=== PATIENT | female | born 1985 | race Caucasian/White ===

== ENCOUNTER 2016-04-07 13:20 | Emergency (ER) | payer BC ==
[2016-04-07] MEDS ORDERED: SODIUM CHLORIDE 0.9% 1,000 ML IV STA ×2 (14:22)
[2016-04-07] MEDS ORDERED: HYDROmorphone 1 MG/ML 1 ML SYRINGE IVP STA (14:22)
[2016-04-07] MEDS ORDERED: ONDANSETRON 4 MG/2 ML VIAL IVP STA (14:22)
--- NOTE | 2016-04-07 14:24 | ED ---
General Adult HPI - General Chief complaint: Back Pain/Injury Stated complaint: Back Pain Time Seen by Provider: 04/07/16 14:19 Source: patient, RN notes reviewed Mode of arrival: wheelchair Limitations: no limitations - History of Present Illness Initial comments: Patient is a 30-year-old female who presents emergency room today with a chief complaint of right-sided flank pain that started this morning. She does admit that she started as a urinary tract infection. States she went to the family doctor was started on Cipro. She states that the pain is increased. She states radiated around to the right groin. She states it's more intense that she's been home. States never had pain like this in the past with any urinary tract infections. She does admit to a family history of kidney stones. She denies any complaints associated symptoms. She states she started one dose of Cipro and is also taking [id number] Azo for the symptoms. States that she 's felt nauseated is having episodes of vomiting. Patient denies any recent fever, chills, shortness of breath, chest pain, numbness or tingling, constipation or diarrhea, headaches or visual changes, or any other complaints. - Related Data Home Medications Medication Instructions Recorded Confirmed Ciprofloxacin HCl [Cipro] 500 mg PO Q12HR 04/07/16 04/07/16 Dextroamphetamine/Amphetamine 20 mg PO QAM 04/07/16 04/07/16 [Adderall Xr] Previous Rx's Medication Instructions Recorded Hydrocodone/Acetaminophen [[place] 1 each PO Q6HR PRN #20 tab 04/07/16 5-325] Ibuprofen [Motrin] 800 mg PO Q6HR PRN #30 tab 04/07/16 Ondansetron Odt [Zofran ODT] 4 mg PO Q8HR PRN #15 tab 04/07/16 Tamsulosin [Flomax] 0.4 mg PO DAILY #3 cap 04/07/16 Allergies Allergy/AdvReac Type Severity Reaction Status Date / Time Sulfa (Sulfonamide Allergy Rash/Hives Verified 04/07/16 14:40 Antibiotics) Review of Systems ROS Statement: Those systems with pertinent positive or pertinent negative responses have been documented in the HPI. ROS Other: All systems not noted in ROS Statement are negative. Past Medical History Past Medical History: No Reported History History of Any Multi-Drug Resistant Organisms: None Reported Past Surgical History: No Surgical Hx Reported Past Psychological History: ADD/ADHD Smoking Status: Never smoker Past Alcohol Use History: Occasional Past Drug Use History: None Reported General Exam - General Exam Comments Initial Comments: General: The patient is awake and alert, in no distress, and does not appear acutely ill. Eye: Pupils are equal, round and reactive to light, extra-ocular movements are intact. No nystagmus. There is normal conjunctiva bilaterally. No signs of icterus. Ears, nose, mouth and throat: There are moist mucous membranes and no oral lesions. Neck: The neck is supple, there is no tenderness or JVD. Cardiovascular: There is a regular rate and rhythm. No murmur, rub or gallop is appreciated. Respiratory: Lungs are clear to auscultation, respirations are non-labored, breath sounds are equal. No wheezes, stridor, rales, or rhonchi. Gastrointestinal: Soft, non-distended, non-tender abdomen without masses or organomegaly noted. There is no rebound or guarding present. No CVA tenderness. Bowel sounds are unremarkable. Musculoskeletal: Normal ROM, no tenderness. Strength 5/5. Sensation intact. Pulses equal bilaterally 2+. Neurological: A&O x 3. CN II-XII intact, There are no obvious motor or sensory deficits. Coordination appears grossly intact. Speech is normal. Skin: Skin is warm and dry and no rashes or lesions are noted. Psychiatric: Cooperative, appropriate mood & affect, normal judgment. Limitations: no limitations Course Vital Signs 04/07/16 15:00 Temperature 97.0 F L Pulse Rate 68 Respiratory 20 Rate Blood Pressure 108/65 O2 Sat by Pulse 100 Oximetry Medical Decision Making - Medical Decision Making Patient reexamined at this time shows no signs of distress is feeling much better after Toradol given here in emergency room. Her CAT scan reveals a 3 mm stone. No sign of obstruction. Results were discussed with the patient. Patient will be discharged home. She does have antibiotics at home of Cipro. She does have nitrates positive in her urine. Given dose of Rocephin here in the emergency room. No fever. Patient is stable. Will be discharged at this time with pain medication and nausea medication. Advised follow-up the family doctor and urologist. Advised return if symptoms increase or worsen or for any other concerns. Patient states understanding and is in agreement. - Lab Data Result diagrams: 04/07/16 15:00 04/07/16 15:00 Lab Results 04/07/16 04/07/16 04/07/16 Range/Units 15:00 15:00 15:00 WBC 13.0 H (3.8-10.6) k/uL RBC 4.43 (3.80-5.40) m/uL Hgb 13.5 (11.4-16.0) gm/dL Hct 37.9 (34.0-46.0) % MCV 85.5 (80.0-100.0) fL MCH 30.5 (25.0-35.0) pg MCHC 35.6 (31.0-37.0) g/dL RDW 13.5 (11.5-15.5) % Plt Count 361 (150-450) k/uL Neutrophils % 86 % Lymphocytes % 8 % Monocytes % 4 % Eosinophils % 0 % Basophils % 0 % Neutrophils # 11.2 H (1.3-7.7) k/uL Lymphocytes # 1.1 (1.0-4.8) k/uL Monocytes # 0.6 (0-1.0) k/uL Eosinophils # 0.1 (0-0.7) k/uL Basophils # 0.1 (0-0.2) k/uL Hyperchromasia Slight Sodium 140 (137-145) mmol/L Potassium 4.1 (3.5-5.1) mmol/L Chloride 100 (98-107) mmol/L Carbon Dioxide 27 (22-30) mmol/L Anion Gap 13 mmol/L BUN 17 (7-17) mg/dL Creatinine 0.80 (0.52-1.04) mg/dL Est GFR (MDRD) Af Amer >60 (>60 ml/min/1.73 sqM) Est GFR (MDRD) Non-Af >60 (>60 ml/min/1.73 sqM) Glucose 121 H (74-99) mg/dL Calcium 10.0 (8.4-10.2) mg/dL Total Bilirubin 0.7 (0.2-1.3) mg/dL AST 23 (14-36) U/L ALT 39 (9-52) U/L Alkaline Phosphatase 91 (38-126) U/L Total Protein 7.7 (6.3-8.2) g/dL Albumin 4.8 (3.5-5.0) g/dL Amylase 34 (30-110) U/L Lipase 37 (23-300) U/L Urine Color Urine Appearance (Clear) Urine pH (5.0-8.0) Ur Specific Woody (1.001-1.035) Urine Protein (Negative) Urine Glucose (UA) (Negative) Urine Ketones (Negative) Urine Blood (Negative) Urine Nitrate (Negative) Urine Bilirubin (Negative) Urine Urobilinogen (<2.0) mg/dL Ur Leukocyte Esterase (Negative) Urine RBC (0-5) /hpf Urine WBC (0-5) /hpf Ur Squamous Epith Cells (0-4) /hpf Urine Bacteria (None) /hpf Urine Mucus (None) /hpf Urine HCG, Qual Not Detected (Not Detectd) 04/07/16 Range/Units 15:00 WBC (3.8-10.6) k/uL RBC (3.80-5.40) m/uL Hgb (11.4-16.0) gm/dL Hct (34.0-46.0) % MCV (80.0-100.0) fL MCH (25.0-35.0) pg MCHC (31.0-37.0) g/dL RDW (11.5-15.5) % Plt Count (150-450) k/uL Neutrophils % % Lymphocytes % % Monocytes % % Eosinophils % % Basophils % % Neutrophils # (1.3-7.7) k/uL Lymphocytes # (1.0-4.8) k/uL Monocytes # (0-1.0) k/uL Eosinophils # (0-0.7) k/uL Basophils # (0-0.2) k/uL Hyperchromasia Sodium (137-145) mmol/L Potassium (3.5-5.1) mmol/L Chloride (98-107) mmol/L Carbon Dioxide (22-30) mmol/L Anion Gap mmol/L BUN (7-17) mg/dL Creatinine (0.52-1.04) mg/dL Est GFR (MDRD) Af Amer (>60 ml/min/1.73 sqM) Est GFR (MDRD) Non-Af (>60 ml/min/1.73 sqM) Glucose (74-99) mg/dL Calcium (8.4-10.2) mg/dL Total Bilirubin (0.2-1.3) mg/dL AST (14-36) U/L ALT (9-52) U/L Alkaline Phosphatase (38-126) U/L Total Protein (6.3-8.2) g/dL Albumin (3.5-5.0) g/dL Amylase (30-110) U/L Lipase (23-300) U/L Urine Color Dark Brown Urine Appearance Clear (Clear) Urine pH 8.0 (5.0-8.0) Ur Specific Woody 1.023 (1.001-1.035) Urine Protein 1+ H (Negative) Urine Glucose (UA) Negative (Negative) Urine Ketones Negative (Negative) Urine Blood Small H (Negative) Urine Nitrate Positive H (Negative) Urine Bilirubin 2+ H (Negative) Urine Urobilinogen 12.0 (<2.0) mg/dL Ur Leukocyte Esterase Negative (Negative) Urine RBC 69 H (0-5) /hpf Urine WBC 2 (0-5) /hpf Ur Squamous Epith Cells 3 (0-4) /hpf Urine Bacteria Occasional H (None) /hpf Urine Mucus Occasional H (None) /hpf Urine HCG, Qual (Not Detectd) Disposition Clinical Impression: Kidney stone Disposition: HOME SELF-CARE Condition: Good Instructions: Kidney Stones (ED) Additional Instructions: Please follow-up the family doctor/urologist over the next 2 days. Please use medications as prescribed. Please return to emergency room symptoms increase or worsen or for any other concerns. Prescriptions: Hydrocodone/Acetaminophen [[place] 5-325] 1 each PO Q6HR PRN #20 tab PRN Reason: Pain Ibuprofen [Motrin] 800 mg PO Q6HR PRN #30 tab PRN Reason: Pain Ondansetron Odt [Zofran ODT] 4 mg PO Q8HR PRN #15 tab PRN Reason: Nausea Tamsulosin [Flomax] 0.4 mg PO DAILY #3 cap Referrals: Chava Jackson MD [Primary Care Provider] - 1-2 days Ravindra Irwin MD [STAFF PHYSICIAN] - 1-2 days Time of Disposition: 17:16
[2016-04-07 15:15] LABS: Basophils # (A) 0.1 k/uL (0-0.2); Basophils % (A) 0 %; CHCM 37.7; Eosinophils # (A) 0.1 k/uL (0-0.7); Eosinophils % (A) 0 %; HCT 37.9 % (34.0-46.0); HDW 3.22; HGB 13.5 gm/dL (11.4-16.0); Hyperchromasia Slight; Luc # (Auto) 0.05; Luc % (Auto) 0; Lymphocytes # (A) 1.1 k/uL (1.0-4.8); Lymphocytes % (A) 8 %; MCH 30.5 pg (25.0-35.0); MCHC 35.6 g/dL (31.0-37.0); MCV 85.5 fL (80.0-100.0); Mean Platelet Volume 7.5; Monocytes # (A) 0.6 k/uL (0-1.0); Monocytes % (A) 4 %; Neutrophils # (A) 11.2 k/uL (1.3-7.7); Neutrophils % (A) 86 %; RBC 4.43 m/uL (3.80-5.40); RDW 13.5 % (11.5-15.5); WBC (Perox) 13.56
[2016-04-07 15:25] LABS: Appearance,Urine Clear (Clear); Bacteria,Urine Occasional /hpf; Bilirubin,Urine 2+ (Negative); Glucose,Urine (UA) Negative (Negative); Ketones,Urine Negative (Negative); Leukocyte Esterase,Urine Negative (Negative); Mucus,Urine Occasional /hpf; Nitrite,Urine Positive (Negative); Particle Count 9176; Protein,Urine 1+ (Negative); RBC,Urine 69 /hpf (0-5); Specific Gravity,Urine 1.023 (1.001-1.035); Squamous Epithelial Cell,Urine 3 /hpf (0-4); UA Billing (MACRO vs. MICRO) MICRO; WBC,Urine 2 /hpf (0-5)
[2016-04-07 15:26] LABS: ALT 39 U/L (9-52); AST 23 U/L (14-36); Alkaline Phosphatase 91 U/L (38-126); Amylase 34 U/L (30-110); Anion Gap 13 mmol/L; Blood Urea Nitrogen 17 mg/dL (7-17); Carbon Dioxide 27 mmol/L (22-30); Chloride 100 mmol/L (98-107); Glucose 121 mg/dL (74-99); Non-African American GFR(MDRD) >60 (>60 ml/min/1.73 sqM); Potassium 4.1 mmol/L (3.5-5.1); Sodium 140 mmol/L (137-145); Total Bilirubin 0.7 mg/dL (0.2-1.3); Total Protein 7.7 g/dL (6.3-8.2)
[2016-04-07] MEDS ORDERED: KETOROLAC 30 MG/ML 1 ML VIAL IVP STA (15:32)
--- NOTE | 2016-04-07 16:27 | XR ---
EXAMINATION TYPE: XR KUB DATE OF EXAM: 04/07/2016 4:19 PM COMPARISON: NONE INDICATION: Abdomen pain right flank pain TECHNIQUE: Single view abdomen upright FINDINGS: There is a normal bowel gas pattern. Psoas margins are normal. No organomegaly is present. No suspicious air-fluid levels or differential air-fluid levels are present. No free air is present. IMPRESSION: 1. Unremarkable Abdomen
--- NOTE | 2016-04-07 16:35 | CT ---
EXAMINATION TYPE: CT abdomen pelvis wo con DATE OF EXAM: 04/07/2016 4:18 PM COMPARISON: NONE INDICATION: Nausea, vomiting and generalized abdominal pain x 5 days. DLP: 1187 mGycm, Automated exposure control for dose reduction was used. CONTRAST: None Study performed without Oral Contrast TECHNIQUE: Axial images were obtained from above the diaphragm to the pubic rami in the axial plane a t 5 mm thick sections. Reconstructed images are reviewed on the computer in the coronal plane. FINDINGS: Limited CT sections are obtained the lung bases. The lung bases are clear. CT ABDOMEN: Liver: Normal Spleen: Normal Pancreas: Normal Adrenal glands: The adrenal glands are normal. Gallbladder: Normal Kidneys: No masses are evident. No hydronephrosis is present. No cysts are present. Aorta: Normal Inferior vena cava: Normal. CT PELVIS: Small amount of free fluid is within the cul-de-sac. Loops of bowel within the abdomen and pelvis are normal. Appendix: Normal as visualized. Urinary bladder: Normal. Genitourinary structures: Uterus is normal. Adnexal regions are clear. There is a 0.3 cm calcification in the distal left ureter at the ureterovesical junction. No hydronep hrosis or hydroureter is evident. Osseous structures: No suspicious lytic or sclerotic lesions. IMPRESSIONS: 1. 0.3 cm distal left ureteral vesicle junction stone. 2. Minimal free fluid within the cul-de-sac.
[2016-04-07 17:45] VITALS: BP 120/67; PULSE 80; RESP 16; TEMP 97.7
== END 2016-04-07 17:45 | disposition home or self-care (01) ==
LOC: EC 13:20
DX: N20.2 Calculus of kidney with calculus of ureter (principal); F90.9 Attention-deficit hyperactivity disorder, unspecified type; Z87.440 Personal history of urinary (tract) infections; Z79.899 Other long term (current) drug therapy; Z88.2 Allergy status to sulfonamides
CPT/HCPCS: 99284; 96365; 96375; 96361; 36415; 80053; 82150; 83690; 85025; 81001; 81025; 87086; 74000; 74176; J2405; J0696; J1885; J1170

== ENCOUNTER → 2016-05-25 | Outpatient (CLI) | payer BC ==
--- NOTE | 2016-05-25 11:25 | XR ---
EXAMINATION TYPE: XR chest 2V DATE OF EXAM: 05/25/2016 10:50 AM COMPARISON: Prior chest x-ray 31 October 2010 HISTORY: Pleuritic chest pain TECHNIQUE: Frontal and lateral views of the chest are obtained. FINDINGS: There is no focal air space opacity, pleural effusion, or pneumothorax seen. The cardiac silhouette size is within normal limits. May be a slight spinal curvature. The osseous structures ar e intact. IMPRESSION: No acute cardiopulmonary process.
== END ==
LOC: RADXRMAIN 10:34
PROVIDERS: ATTEND Pediatrics
DX: R07.89 Other chest pain (principal)
CPT/HCPCS: 71020

== ENCOUNTER 2016-05-30 20:00 | Emergency (ER) | payer BC ==
[2016-05-30 20:07] VITALS: BP 145/87; PULSE 109; RESP 20; TEMP 100.4
[2016-05-30] MEDS ORDERED: ACETAMINOPHEN TAB 325 MG TAB PO STA (20:22)
--- NOTE | 2016-05-30 20:25 | ED ---
URI HPI - General Chief Complaint: Upper Respiratory Infection Stated Complaint: KATY Time Seen by Provider: 05/30/16 20:11 Source: patient, RN notes reviewed Mode of arrival: ambulatory Limitations: no limitations - History of Present Illness Initial Comments: Patient is a 30-year-old female who presents to the emergency room for evaluation of upper respiratory symptoms. Patient states she's had a dry cough for the past 3 days. Patient states she has been taking [id number] Robitussin with no relief of symptoms. Patient denies smoking. Patient does state she has a history of asthma. Patient states been using her inhaler with no relief of symptoms. Patient also states over the past 24 hours she began developing a fever. Patient states she has been taking ibuprofen with little relief of symptoms. Patient states her last dose ibuprofen was around 6:30 PM. Patient states she is having all over body aches. Patient denies throat pain or ear pain. Patient denies abdominal pain. Patient states she is feeling nauseous but denies vomiting. Patient denies diarrhea or constipation. Patient states that she did not receive her influenza vaccine this year. - Related Data Home Medications Medication Instructions Recorded Confirmed Dextroamphetamine/Amphetamine 20 mg PO QAM 04/07/16 05/30/16 [Adderall Xr] Albuterol Inhaler [Ventolin Hfa 1 - 2 puff INHALATION RT-QID PRN 05/30/16 Inhaler] Ibuprofen [Motrin] 800 mg PO TID PRN 05/30/16 05/30/16 Previous Rx's Medication Instructions Recorded Oseltamivir [Tamiflu] 75 mg PO Q12HR 5 Days 05/30/16 Allergies Allergy/AdvReac Type Severity Reaction Status Date / Time Sulfa (Sulfonamide Allergy Rash/Hives Verified 05/30/16 20:21 Antibiotics) Review of Systems ROS Statement: Those systems with pertinent positive or pertinent negative responses have been documented in the HPI. ROS Other: All systems not noted in ROS Statement are negative. Past Medical History Past Medical History: Asthma History of Any Multi-Drug Resistant Organisms: None Reported Past Surgical History: No Surgical Hx Reported Past Psychological History: ADD/ADHD Smoking Status: Never smoker Past Alcohol Use History: Occasional Past Drug Use History: None Reported General Exam - General Exam Comments Initial Comments: Sitting in exam room, no acute distress. Limitations: no limitations General appearance: alert, in no apparent distress Head exam: Present: atraumatic, normocephalic, normal inspection Eye exam: Present: normal appearance ENT exam: Present: normal exam, normal oropharynx, mucous membranes moist, TM's normal bilaterally, normal external ear exam Neck exam: Present: normal inspection Respiratory exam: Present: normal lung sounds bilaterally. Absent: respiratory distress Cardiovascular Exam: Present: normal rhythm, tachycardia, normal heart sounds Extremities exam: Present: normal inspection Back exam: Present: normal inspection Neurological exam: Present: alert, oriented X3, CN II-XII intact, normal gait Psychiatric exam: Present: normal affect, normal mood Skin exam: Present: warm, dry, intact, normal color. Absent: rash Course Vital Signs 05/30/16 20:05 Temperature 100.4 F H Pulse Rate 109 H Respiratory 20 Rate Blood Pressure 145/87 O2 Sat by Pulse 98 Oximetry Medical Decision Making - Medical Decision Making Patient is a 30-year-old female presents to the emergency room for evaluation of cough, congestion and fever. Chest x-ray shows no acute findings. Influenza B positive. Patient be started on Tamiflu. Advised to alternate Tylenol and Motrin. Patient states she understands everything that was discussed with her. Return parameters discussed. Case discussed with Dr. De La Rosa. - Lab Data Lab Results 05/30/16 Range/Units 20:20 Influenza Type A RNA Not Detected (Not Detectd) Influenza Type B (PCR) Detected H (Not Detectd) - Radiology Data Radiology results: report reviewed, image reviewed Disposition Clinical Impression: Influenza B Disposition: HOME SELF-CARE Condition: Good Instructions: Influenza (ED) Additional Instructions: Take Tamiflu as directed. Alternate Tylenol and Motrin every 3 hours for fever. Drink plenty fluids. Please follow up with primary care provider in 1- 2 days. If any new symptom arises or symptoms worsen, return to ER as soon as possible. Prescriptions: Oseltamivir [Tamiflu] 75 mg PO Q12HR 5 Days Referrals: Chava Jackson MD [Primary Care Provider] - 1-2 days Time of Disposition: 21:04
--- NOTE | 2016-05-30 20:42 | XR ---
EXAMINATION TYPE: XR chest 2V DATE OF EXAM: 05/30/2016 8:31 PM COMPARISON: 05/25/2016 HISTORY: Fever and cough TECHNIQUE: Frontal and lateral views of the chest are obtained. FINDINGS: Heart and mediastinum are normal. Lungs are clear. Diaphragm is normal. Bony thorax and so ft tissues appear normal. IMPRESSION: Normal chest. No change.
== END 2016-05-30 21:15 | disposition home or self-care (01) ==
LOC: EC 20:00
DX: J10.1 Influenza due to other identified influenza virus with other respiratory manifestations (principal); J45.909 Unspecified asthma, uncomplicated; F90.9 Attention-deficit hyperactivity disorder, unspecified type; Z79.899 Other long term (current) drug therapy; Z88.2 Allergy status to sulfonamides
CPT/HCPCS: 71020; 87502; 99283

== ENCOUNTER → 2017-09-12 | Outpatient (CLI) | payer BC ==
--- NOTE | 2017-09-12 20:08 | US ---
EXAMINATION TYPE: US renals and bladder DATE OF EXAM: 09/12/2017 COMPARISON: NONE CLINICAL HISTORY: Hematuria R31.9. Gross hematuria x 5 months. Proteinuria, right flank pain, history of kidney stones EXAM MEASUREMENTS: Right Kidney: 11.8 x 4.7 x 6.3 cm Left Kidney: 12.0 x 6.1 x 5.1 cm Right Kidney: no evidence of hydronephrosis Left Kidney: no evidence of hydronephrosis Bladder: not fully distended, appears wnl Bilateral Jets seen: no IMPRESSION: No evidence of renal mass or obstruction. Urinary bladder appears normal.
== END | disposition home or self-care (01) ==
LOC: RADUSMAIN 17:52
PROVIDERS: ATTEND Pediatrics
DX: R31.9 Hematuria, unspecified (principal)
CPT/HCPCS: 76770

== ENCOUNTER 2021-12-15 07:39 | Emergency (ER) | payer BC ==
[2021-12-15 07:45] VITALS: BP 150/86; PULSE 82; RESP 18; TEMP 97.8
--- NOTE | 2021-12-15 08:41 | ED ---
Chest Pain HPI - General Chief Complaint: Chest Pain Stated Complaint: chest pain Time Seen by Provider: 12/15/21 08:06 Source: patient Mode of arrival: ambulatory Limitations: no limitations - History of Present Illness Initial Comments: 35-year-old female with past medical history of exercise-induced asthma who presents to emergency room with chest pain. States that for the past 3 days she has had left-sided substernal chest pain which radiates into her back. Pain is worse with exertion and better with rest. She has associated shortness of matias th. Denies previous history of cardiac disease. Asthma as mild, intermittent. Only uses her inhaler twice per year. Denies any palliative factors. No fevers, chills or cough. No ripping or tearing sensation to her back. Denies any numbness, tingling or weakness to extremities. No headaches or visual changes. Denies any calf pain or swelling. No history of DVT or PE. She had telehealth visit this morning. When her primary care provider heard she was having chest pain, she recommended that she go to the emergency room for evaluation. Patient also reports to dysuria. He saw a urologist last week and was diagnosed with urinary tract infection. She was placed on Macrobid for which she is taking however her symptoms are not improved. Patient is status post hysterectomy. No other alleviating, precipitating or modifying factors - Related Data Home Medications Medication Instructions Recorded Confirmed Dextroamphetamine/Amphetamine 20 mg PO QAM 04/07/16 05/30/16 [Adderall Xr] Albuterol Inhaler [Ventolin Hfa 1 - 2 puff INHALATION RT-QID PRN 05/30/16 05/30/16 Inhaler] Ibuprofen [Motrin] 800 mg PO TID PRN 05/30/16 05/30/16 Previous Rx's Medication Instructions Recorded Oseltamivir [Tamiflu] 75 mg PO Q12HR 5 Days cap 05/30/16 Cephalexin [Keflex] 500 mg PO BID 1 Days #14 cap 12/15/21 Allergies Allergy/AdvReac Type Severity Reaction Status Date / Time Sulfa (Sulfonamide Allergy Rash/Hives Verified 12/15/21 07:45 Antibiotics) Review of Systems ROS Statement: Those systems with pertinent positive or pertinent negative responses have been documented in the HPI. ROS Other: All systems not noted in ROS Statement are negative. EKG Findings - EKG Comments: EKG Findings:: EKG demonstrates sinus rhythm with a rate of 72. IN interval 132. QRS 87. QTC 398. No acute ST segment elevations or depressions Past Medical History Past Medical History: Asthma History of Any Multi-Drug Resistant Organisms: None Reported Past Surgical History: No Surgical Hx Reported Past Psychological History: ADD/ADHD Smoking Status: Never smoker Past Alcohol Use History: Occasional Past Drug Use History: None Reported General Exam Limitations: no limitations General appearance: alert, in no apparent distress Head exam: Present: atraumatic, normocephalic, normal inspection Eye exam: Present: normal appearance, PERRL, EOMI. Absent: scleral icterus, conjunctival injection, periorbital swelling ENT exam: Present: normal exam, mucous membranes moist Neck exam: Present: normal inspection. Absent: tenderness, meningismus, lymphadenopathy Respiratory exam: Present: normal lung sounds bilaterally. Absent: respiratory distress, wheezes, rales, rhonchi, stridor Cardiovascular Exam: Present: regular rate, normal rhythm, normal heart sounds. Absent: systolic murmur, diastolic murmur, rubs, gallop, clicks GI/Abdominal exam: Present: soft, normal bowel sounds. Absent: distended, tenderness, guarding, rebound, rigid Extremities exam: Present: normal inspection, full ROM, normal capillary refill. Absent: tenderness, pedal edema, joint swelling, calf tenderness Back exam: Present: normal inspection Neurological exam: Present: alert, oriented X3, CN II-XII intact Psychiatric exam: Present: normal affect, normal mood Skin exam: Present: warm, dry, intact, normal color. Absent: rash Course Vital Signs 12/15/21 07:42 Temperature 97.8 F Pulse Rate 82 Respiratory 18 Rate Blood Pressure 150/86 O2 Sat by Pulse 100 Oximetry Chest Pain MDM - MDM Upon arrival the patient is placed into room 8. Thorough history and physical exam was performed. IV access was established. Patient was offered something for pain control however refused. Laboratory studies were conducted reviewed. D-dimer negative. Troponin negative. Chest x-rays performed which showed trace no acute process. Results are discussed with the patient. Urinalysis continues to demonstrate blood and bacteria. Her anabiotic will be changed at this time. He urine specimen will be sent for culture. Instructed to start taking the medications as directed and she will be called if culture results demonstrate that the Keflex will not work. She is to follow-up with her primary care doctor to ensure that the infection has cleared. She also needs to follow-up and have an echo performed. Return for any new or worsening symptoms. Patient was agreeable and discharged home in stable condition Disposition Clinical Impression: Chest pain Disposition: HOME SELF-CARE Condition: Stable Instructions (If sedation given, give patient instructions): Chest Pain (ED), Urinary Tract Infection in Women (ED) Additional Instructions: Please take the medications as directed. If you continue to have symptoms after the medications are finished, you will have to see the urologist again. Please follow-up with primary care doctor for your chest pain. You should have an echo completed. Return for any new or worsening symptoms Prescriptions: Cephalexin [Keflex] 500 mg PO BID 1 Days #14 cap Is patient prescribed a controlled substance at d/c from ED?: No Referrals: Chava Jackson MD [Primary Care Provider] - 1-2 days Time of Disposition: 10:31
[2021-12-15 09:17] LABS: Basophils # (A) 0.1 k/uL (0-0.2); Basophils % (A) 1 %; Eosinophils # (A) 0.4 k/uL (0-0.7); Eosinophils % (A) 5 %; HCT 40.3 % (34.0-46.0); HGB 14.3 gm/dL (11.4-16.0); Lymphocytes # (A) 1.7 k/uL (1.0-4.8); Lymphocytes % (A) 23 %; MCH 30.6 pg (25.0-35.0); MCHC 35.4 g/dL (31.0-37.0); MCV 86.4 fL (80.0-100.0); Mean Platelet Volume 7.4; Monocytes # (A) 0.4 k/uL (0-1.0); Monocytes % (A) 5 %; Neutrophils # (A) 4.8 k/uL (1.3-7.7); Neutrophils % (A) 64 %; Platelet Count 305 k/uL (150-450); RBC 4.66 m/uL (3.80-5.40); RDW 13.1 % (11.5-15.5); WBC 7.4 k/uL (3.8-10.6)
[2021-12-15 09:24] LABS: ALT 23 U/L (4-34); AST 24 U/L (14-36); African American GFR (CKD) >90 (>60 ml/min/1.73 sqM); Albumin 4.7 g/dL (3.5-5.0); Alkaline Phosphatase 109 U/L (38-126); Anion Gap 13 mmol/L; Blood Urea Nitrogen 14 mg/dL (7-17); Calcium 9.5 mg/dL (8.4-10.2); Carbon Dioxide 24 mmol/L (22-30); Chloride 101 mmol/L (98-107); Glucose 93 mg/dL (74-99); Lipase 35 U/L (23-300); Magnesium 1.8 mg/dL (1.6-2.3); Non-African American GFR(CKD) >90 (>60 ml/min/1.73 sqM); Potassium 4.2 mmol/L (3.5-5.1); Sodium 138 mmol/L (137-145); Total Bilirubin 1.2 mg/dL (0.2-1.3); Total Protein 7.4 g/dL (6.3-8.2)
[2021-12-15 09:37] LABS: INR 0.9 (<1.2); Partial Thromboplastin Time 23.6 sec (22.0-30.0); Prothrombin Time 10.4 sec (9.0-12.0)
[2021-12-15 10:06] LABS: Appearance,Urine Cloudy (Clear); Bacteria,Urine Rare /hpf; Bilirubin,Urine Negative (Negative); Blood,Urine Moderate (Negative); Color,Urine Yellow; Glucose,Urine (UA) Negative (Negative); Ketones,Urine Negative (Negative); Leukocyte Esterase,Urine Negative (Negative); Mucus,Urine Many /hpf; Nitrite,Urine Negative (Negative); PH, Urine 6.5 (5.0-8.0); Protein,Urine Trace (Negative); RBC,Urine 23 /hpf (0-5); Specific Gravity,Urine 1.019 (1.001-1.035); Squamous Epithelial Cell,Urine 1 /hpf (0-4); Urobilinogen,Urine <2.0 mg/dL (<2.0); WBC,Urine 2 /hpf (0-5)
--- NOTE | 2021-12-15 10:14 | XR ---
EXAMINATION TYPE: XR chest 2V DATE OF EXAM: 12/15/2021 10:09 AM COMPARISON: Chest radiographs from 05/30/2016 TECHNIQUE: XR chest 2V Frontal and lateral views of the chest. CLINICAL INDICATION:Female, 35 years old with history of Cough/pain; FINDINGS: Lungs/Pleura: There is no evidence of pleural effusion, focal consolidation, or pneumothorax. Pulmonary vascularity: Unremarkable. Heart/mediastinum: Cardiomediastinal silhouette is unremarkable. Musculoskeletal: No acute osseous pathology. IMPRESSION: No acute cardiopulmonary disease/process.
== END 2021-12-15 10:47 | disposition home or self-care (01) ==
LOC: EC 07:39
DX: R07.9 Chest pain, unspecified (principal); R07.89 Other chest pain; J45.909 Unspecified asthma, uncomplicated; Z88.2 Allergy status to sulfonamides; Z79.51 Long term (current) use of inhaled steroids; Z79.899 Other long term (current) drug therapy; Z20.822 Contact with and (suspected) exposure to COVID-19
CPT/HCPCS: 36415; 71046; 80053; 81001; 83690; 83735; 84484; 85025; 85379; 85610; 85730; 87635; 93005; 99285

== ENCOUNTER → 2022-03-09 | Outpatient (CLI) | payer BC ==
[2022-03-09 15:07] LABS: Chol/HDL Ratio 4.62 Ratio; LDL Cholesterol,Calculated 111.6 mg/dL (0.0-131.0)
== END | disposition home or self-care (01) ==
LOC: LABWHC1 08:45
PROVIDERS: ATTEND Internal Medicine
DX: I10 Essential (primary) hypertension (principal); E78.5 Hyperlipidemia, unspecified
CPT/HCPCS: 36415; 80061

== ENCOUNTER 2023-08-10 08:59 | Observation (INO) | payer BC ==
[2023-08-10] MEDS: methylPREDNISolone SOD SUCCI 125 MG/2 ML VIAL IV STA (09:33)
[2023-08-10] MEDS: MAGNESIUM SULFATE-D5W PMX 1 GM in DEXTROSE/WATER 1 100ML.BAG IVPB ONE (09:34)
[2023-08-10 10:06] LABS: Basophils # (A) 0.1 k/uL (0-0.2); Basophils % (A) 1 %; Eosinophils # (A) 0.1 k/uL (0-0.7); Eosinophils % (A) 1 %; HCT 40.5 % (34.0-46.0); Hyperchromasia Slight; Lymphocytes # (A) 0.8 k/uL (1.0-4.8); Lymphocytes % (A) 7 %; MCHC 34.7 g/dL (31.0-37.0); MCV 86.7 fL (80.0-100.0); Mean Platelet Volume 7.7; Monocytes # (A) 0.3 k/uL (0-1.0); Monocytes % (A) 3 %; Neutrophils # (A) 10.9 k/uL (1.3-7.7); Neutrophils % (A) 89 %; Platelet Count 344 k/uL (150-450); RBC 4.67 m/uL (3.80-5.40); RDW 12.8 % (11.5-15.5); WBC 12.3 k/uL (3.8-10.6)
--- NOTE | 2023-08-10 10:10 | XR ---
EXAMINATION TYPE: XR chest 2V DATE OF EXAM: 08/10/2023 COMPARISON: 12/15/2021 HISTORY: 37-year-old female with shortness of breath TECHNIQUE: PA and lateral views FINDINGS: The cardiomediastinal silhouette, aorta, and pulmonary vasculature are within normal limits. Lungs an d pleural spaces are clear. IMPRESSION: No acute cardiopulmonary process.
[2023-08-10 10:13] LABS: ALT 27 U/L (4-34); African American GFR (CKD) >90 (>60 ml/min/1.73 sqM); Albumin 4.7 g/dL (3.5-5.0); Anion Gap 7 mmol/L; Blood Urea Nitrogen 21 mg/dL (7-17); Calcium 9.6 mg/dL (8.4-10.2); Carbon Dioxide 29 mmol/L (22-30); Chloride 103 mmol/L (98-107); Glucose 115 mg/dL (74-99); Non-African American GFR(CKD) >90 (>60 ml/min/1.73 sqM); Sodium 139 mmol/L (137-145); Total Bilirubin 1.5 mg/dL (0.2-1.3)
[2023-08-10] MEDS: IPRATROPIUM-ALBUTEROL 3 ML NEB INHALATION STA (10:17)
[2023-08-10 10:24] LABS: AST 30 U/L (14-36); Potassium 3.9 mmol/L (3.5-5.1)
[2023-08-10 10:25] LABS: Alkaline Phosphatase 87 U/L (38-126)
[2023-08-10] MEDS: ALBUTEROL NEBULIZED 2.5 MG/3 ML INHALATION STA (11:58)
[2023-08-10] MEDS ORDERED: NALOXONE 0.4 MG/ML 1 ML VIAL IV PRN (12:57)
[2023-08-10] MEDS ORDERED: ONDANSETRON 4 MG/2 ML VIAL IVP PRN (12:57)
[2023-08-10] MEDS ORDERED: IPRATROPIUM-ALBUTEROL 3 ML NEB INHALATION PRN (13:00)
--- NOTE | 2023-08-10 13:00 | ED ---
General Adult HPI - General Chief complaint: Shortness of Breath Stated complaint: KATY Time Seen by Provider: 08/10/23 09:02 Source: patient, RN notes reviewed Mode of arrival: ambulatory Limitations: no limitations - History of Present Illness Initial comments: 87-year-old female presents emergency department complaint of shortness of breath. Patient states she started not feeling well over the weekend and saw PCP on Tuesday as she has chronic lung issues was placed on antibiotics and steroids and breathing treatments. She states that she had no improvement she has worsened she has dyspnea at rest and with movement. She states that she is not told because she has chronic bronchitis issues she may have COPD she states she was a smoker for 1 year at 20 years old. Patient denies any reported fevers no night sweats she states her lungs are tight. Denies any GI symptoms. - Related Data Home Medications Medication Instructions Recorded Confirmed Azithromycin [Zithromax Z Pack] See Taper PO DIRECTED 08/10/23 08/10/23 levalbuterol HCL [Xopenex 0.63 mg INHALATION RT-QID 08/10/23 08/10/23 Nebulized] predniSONE [Deltasone] 40 mg PO DAILY 08/10/23 08/10/23 Allergies Allergy/AdvReac Type Severity Reaction Status Date / Time Sulfa (Sulfonamide Allergy Rash/Hives Verified 08/10/23 10:33 Antibiotics) Review of Systems ROS Statement: Those systems with pertinent positive or pertinent negative responses have been documented in the HPI. ROS Other: All systems not noted in ROS Statement are negative. Past Medical History Past Medical History: Asthma, COPD History of Any Multi-Drug Resistant Organisms: None Reported Past Surgical History: Hysterectomy Past Psychological History: ADD/ADHD Smoking Status: Never smoker Past Alcohol Use History: Occasional Past Drug Use History: None Reported General Exam Limitations: no limitations General appearance: alert, in no apparent distress Head exam: Present: atraumatic, normocephalic, normal inspection Eye exam: Present: normal appearance, PERRL, EOMI. Absent: scleral icterus, conjunctival injection, periorbital swelling ENT exam: Present: normal exam, normal oropharynx, mucous membranes moist Neck exam: Present: normal inspection, full ROM. Absent: tenderness, meningismus, lymphadenopathy Respiratory exam: Present: respiratory distress, wheezes. Absent: normal lung sounds bilaterally, rales, rhonchi, stridor Cardiovascular Exam: Present: regular rate, normal rhythm, normal heart sounds. Absent: systolic murmur, diastolic murmur, rubs, gallop, clicks Course Vital Signs 08/10/23 08/10/23 08/10/23 09:03 10:17 10:33 Temperature 98.5 F Pulse Rate 92 80 83 Respiratory 16 Rate Blood Pressure 128/88 O2 Sat by Pulse 97 Oximetry 08/10/23 08/10/23 08/10/23 11:06 11:44 11:58 Temperature Pulse Rate 87 75 Respiratory 18 Rate Blood Pressure 129/71 O2 Sat by Pulse 95 92 L Oximetry 08/10/23 12:18 Temperature Pulse Rate 91 Respiratory Rate Blood Pressure O2 Sat by Pulse Oximetry Medical Decision Making - Medical Decision Making Was pt. sent in by a medical professional or institution (Dr. PA, [facility], urgent care, hospital, or group home...) When possible be specific @ -No Did you speak to anyone other than the patient for history (EMS, parent, family, police, friend...)? What history was obtained from this source @ -No Did you review nursing and triage notes (agree or disagree)? Why? @ -I reviewed and agree with nursing and triage notes Were old charts reviewed (outside hosp., previous admission, EMS record, old EKG, old radiological studies, urgent care reports/EKG's, group home records)? Report findings @ -No old charts were reviewed Differential Diagnosis (chest pain, altered mental status, abdominal pain women, abdominal pain men, vaginal bleeding, weakness, fever, dyspnea, syncope, headache, dizziness, GI bleed, back pain, seizure, CVA, palpatations, mental health, musculoskeletal)? @ -Differential Dyspnea: Coronary syndrome, arrhythmia, tamponade, asthma, COPD, pulmonary embolism, pneumonia, pneumothorax, pulmonary effusion, anaphylaxis, diabetic ketoacidosis, flailed chest, pulmonary contusion, diaphragmatic rupture, anemia, neuromuscular, this is not meant to be an all-inclusive list. EKG interpreted by me (3pts min.). @ -None X-rays interpreted by me (1pt min.). @ -Chest x-ray shows no evidence of pneumonia CT interpreted by me (1pt min.). @ -None done U/S interpreted by me (1pt. min.). @ -None done What testing was considered but not performed or refused? (CT, X-rays, U/S, labs)? Why? @ -None What meds were considered but not given or refused? Why? @ -None Did you discuss the management of the patient with other professionals (professionals i.e. , PA, [facility], lab, RT, psych nurse, social work assistant, pipe wrapping machine operator, teacher, vice squad police officer, case finishing machine adjuster)? Give summary @ -Dr. Sweet for asthma exacerbation failed outpatient treatment Was smoking cessation discussed for >3mins.? @ -No Was critical care preformed (if so, how long)? @ -No Were there social determinants of health that impacted care today? How? (Homelessness, low income, unemployed, alcoholism, drug addiction, transportation, low edu. Level, literacy, decrease access to med. care, fdc, rehab)? @ -No Was there de-escalation of care discussed even if they declined (Discuss DNR or withdrawal of care, Hospice)? DNR status @ -No What co-morbidities impacted this encounter? (DM, HTN, Smoking, COPD, CAD, Cancer, CVA, ARF, Chemo, Hep., AIDS, mental health diagnosis, sleep apnea, morbid obesity)? @ -Asthma Was patient admitted / discharged? Hospital course, mention meds given and route, prescriptions, significant lab abnormalities, going to OR and other pertinent info. @ -Admitted patient does have noted hypoxia 90% with ambulation patient has diffuse wheezing minimal improvement patient has acute asthma exacerbation is failed outpatient treatment with steroids and antibiotics patient does not have current signs of bacterial infection will be started on Pulmicort inhaled, DuoNeb treatments, Solu-Medrol Undiagnosed new problem with uncertain prognosis? @ -No Drug Therapy requiring intensive monitoring for toxicity (Heparin, Nitro, Insulin, Cardizem)? @ -No Were any procedures done? @ -No Diagnosis/symptom? @ -Acute exacerbation failed outpatient treatment Acute, or Chronic, or Acute on Chronic? @ -Acute Uncomplicated (without systemic symptoms) or Complicated (systemic symptoms)? @ -Complicated Side effects of treatment? @ -No Exacerbation, Progression, or Severe Exacerbation? @ -Exacerbation Poses a threat to life or bodily function? How? (Chest pain, USA, MT, pneumonia, PE, COPD, DKA, ARF, appy, cholecystitis, CVA, Diverticulitis, Homicidal, Suicidal, threat to staff... and all critical care pts) @ -Yes asthma exacerbation could cause respiratory failure - Lab Data Result diagrams: 08/10/23 09:32 08/10/23 09:32 Lab Results 08/10/23 08/10/23 08/10/23 Range/Units 09:32 09:32 09:32 WBC 12.3 H (3.8-10.6) k/uL RBC 4.67 (3.80-5.40) m/uL Hgb 14.0 (11.4-16.0) gm/dL Hct 40.5 (34.0-46.0) % MCV 86.7 (80.0-100.0) fL MCH 30.0 (25.0-35.0) pg MCHC 34.7 (31.0-37.0) g/dL RDW 12.8 (11.5-15.5) % Plt Count 344 (150-450) k/uL MPV 7.7 Neutrophils % 89 % Lymphocytes % 7 % Monocytes % 3 % Eosinophils % 1 % Basophils % 1 % Neutrophils # 10.9 H (1.3-7.7) k/uL Lymphocytes # 0.8 L (1.0-4.8) k/uL Monocytes # 0.3 (0-1.0) k/uL Eosinophils # 0.1 (0-0.7) k/uL Basophils # 0.1 (0-0.2) k/uL Hyperchromasia Slight Sodium 139 (137-145) mmol/L Potassium 3.9 (3.5-5.1) mmol/L Chloride 103 (98-107) mmol/L Carbon Dioxide 29 (22-30) mmol/L Anion Gap 7 mmol/L BUN 21 H (7-17) mg/dL Creatinine 0.49 L (0.52-1.04) mg/dL Est GFR (CKD-EPI)AfAm >90 (>60 ml/min/1.73 sqM) Est GFR (CKD-EPI)NonAf >90 (>60 ml/min/1.73 sqM) Glucose 115 H (74-99) mg/dL Plasma Lactic Acid Shawn 1.6 (0.7-2.0) mmol/L Calcium 9.6 (8.4-10.2) mg/dL Total Bilirubin 1.5 H (0.2-1.3) mg/dL AST 30 (14-36) U/L ALT 27 (4-34) U/L Alkaline Phosphatase 87 (38-126) U/L Total Protein 8.0 (6.3-8.2) g/dL Albumin 4.7 (3.5-5.0) g/dL Influenza Type A (PCR) (Not Detectd) Influenza Type B (PCR) (Not Detectd) RSV (PCR) (Not Detectd) SARS-CoV-2 (PCR) (Not Detectd) 08/10/23 Range/Units 09:32 WBC (3.8-10.6) k/uL RBC (3.80-5.40) m/uL Hgb (11.4-16.0) gm/dL Hct (34.0-46.0) % MCV (80.0-100.0) fL MCH (25.0-35.0) pg MCHC (31.0-37.0) g/dL RDW (11.5-15.5) % Plt Count (150-450) k/uL MPV Neutrophils % % Lymphocytes % % Monocytes % % Eosinophils % % Basophils % % Neutrophils # (1.3-7.7) k/uL Lymphocytes # (1.0-4.8) k/uL Monocytes # (0-1.0) k/uL Eosinophils # (0-0.7) k/uL Basophils # (0-0.2) k/uL Hyperchromasia Sodium (137-145) mmol/L Potassium (3.5-5.1) mmol/L Chloride (98-107) mmol/L Carbon Dioxide (22-30) mmol/L Anion Gap mmol/L BUN (7-17) mg/dL Creatinine (0.52-1.04) mg/dL Est GFR (CKD-EPI)AfAm (>60 ml/min/1.73 sqM) Est GFR (CKD-EPI)NonAf (>60 ml/min/1.73 sqM) Glucose (74-99) mg/dL Plasma Lactic Acid Shawn (0.7-2.0) mmol/L Calcium (8.4-10.2) mg/dL Total Bilirubin (0.2-1.3) mg/dL AST (14-36) U/L ALT (4-34) U/L Alkaline Phosphatase (38-126) U/L Total Protein (6.3-8.2) g/dL Albumin (3.5-5.0) g/dL Influenza Type A (PCR) Not Detected (Not Detectd) Influenza Type B (PCR) Not Detected (Not Detectd) RSV (PCR) Not Detected (Not Detectd) SARS-CoV-2 (PCR) Not Detected (Not Detectd) Disposition Clinical Impression: Acute asthma exacerbation, Hypoxia Disposition: ADMITTED IP TO THIS HOSP Condition: Fair Referrals: Chava Jackson MD [Primary Care Provider] - 1-2 days Time of Disposition: 12:52
[2023-08-10] MEDS: IPRATROPIUM-ALBUTEROL 3 ML NEB INHALATION SCH (15:20)
[2023-08-10 15:24] VITALS: RESP 16
[2023-08-10] MEDS: ENOXAPARIN 40 MG/0.4 ML SYRINGE SQ SCH (16:19)
[2023-08-10] MEDS: BUDESONIDE 1 MG/2 ML NEBU INHALATION SCH (18:18)
[2023-08-10] MEDS: IBUPROFEN 600 MG TAB PO SCH (18:23)
[2023-08-10] MEDS: methylPREDNISolone SOD SUCCI 125 MG/2 ML VIAL IV SCH (18:24)
--- NOTE | 2023-08-10 19:46 | P.HPIM ---
History of Present Illness H&P Date: 08/10/23 Chief Complaint: Short of breath Very pleasant 37-year-old patient who follows with Dr. Iban Jackson. Patient was diagnosed with asthma at the age of 6. Also has had hysterectomy for heavy fibroid bleedings. Also being worked up for kidney stones by urology. 5 days ago patient started have increasing shortness of breath. Cough that was dry. Some chills but no fevers. Decreased appetite. 3 days ago patient went to her family doctor and was prescribed prednisone and Z-Johnathan. Not much help. Having significant cough. Hurting when she coughs. She also is bringing up little bit of blood now. Was wheezing quite a bit in the ER. Admitted for asthma exac erbation. Decreased appetite Patient is feeling a bit better since admission. 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 . Alcohol occasionally. No smoking. Physical examination: VITAL SIGNS: 98.5, 92, 16, 128/88, 97% room air GENERAL: BMI 31, sitting bed awake not in distress. EYES: Pupils equal. Conjunctiva david l. HEENT: External appearance of nose and ears normal, oral cavity grossly normal. NECK: JVD not raised; masses not palpable. HEART: First and second heart sounds are normal; no edema. LUNGS:[ Respiratory rate increased l wheezing more so anteriorly. ABDOMEN: Soft, nontender, liver spleen not palpable, no masses palpable. PSYCH: Alert and oriented x3; mood and affect david l. MUSCULOSKELETAL:No Clubbing/cyanosis;muscles-grossly intact NEUROLOGICAL: Cranial nerves grossly intact; no facial asymmetry, power and sensation grossly intact. LYMPHATICS: No lymph nodes palpable in the axilla and neck INVESTIGATIONS, reviewed in the clinical context: Influenza type A, type B, RSV, COVID-19: Not detected White count 12.3 hemoglobin 14 platelets 344 sodium 139 potassium 3.9. 21 creatinine 0.49 bilirubin 1.5 Chest x-ray film personally reviewed by me-lung schultz clear Assessment plan: -Acute obstructive asthma exacerbation having failed outpatient treatment. Likely precipitated by viral tracheobronchitis IV Solu-Medrol 60 mg every 8. DuoNeb every 4. Nebulized Pulmicort. -Acute tracheobronchitis likely viral. Causing mild hemoptysis -Obesity BMI 31 Weight loss measures -Kidney stones causing intermittent hematuria This is being worked up by urology outpatient Care was discussed with the patient. Questions answered. Past Medical History Past Medical History: Asthma, COPD History of Any Multi-Drug Resistant Organisms: None Reported Past Surgical History: Hysterectomy Past Anesthesia/Blood Transfusion Reactions: No Reported Reaction Past Psychological History: ADD/ADHD Smoking Status: Never smoker Past Alcohol Use History: Occasional Past Drug Use History: None Reported Medications and Allergies Home Medications Medication Instructions Recorded Confirmed Type Azithromycin [Zithromax Z Pack] See Taper PO DIRECTED 08/10/23 08/10/23 History levalbuterol HCL [Xopenex 0.63 mg INHALATION RT-QID 08/10/23 08/10/23 History Nebulized] predniSONE [Deltasone] 40 mg PO DAILY 08/10/23 08/10/23 History Allergies Allergy/AdvReac Type Severity Reaction Status Date / Time Sulfa (Sulfonamide Allergy Rash/Hives Verified 08/10/23 10:33 Antibiotics) Physical Exam Vitals: Vital Signs Temp Pulse Pulse Resp BP Pulse Ox 08/10/23 18:33 78 08/10/23 18:18 76 08/10/23 15:31 85 08/10/23 15:20 91 08/10/23 15:00 88 16 96 08/10/23 14:55 84 18 119/68 97 08/10/23 12:18 91 08/10/23 11:58 75 08/10/23 11:44 92 L 08/10/23 11:06 87 18 129/71 95 08/10/23 10:33 83 08/10/23 10:17 80 08/10/23 09:03 98.5 F 92 16 128/88 97 Intake and Output 08/10/23 08/10/23 08/10/23 06:59 14:59 22:59 Other: Weight 87.09 kg Results CBC & Chem 7: 08/10/23 09:32 08/10/23 09:32 Labs: Abnormal Lab Results - Last 24 Hours (Table) 08/10/23 08/10/23 Range/Units 09:32 09:32 WBC 12.3 H (3.8-10.6) k/uL Neutrophils # 10.9 H (1.3-7.7) k/uL Lymphocytes # 0.8 L (1.0-4.8) k/uL BUN 21 H (7-17) mg/dL Creatinine 0.49 L (0.52-1.04) mg/dL Glucose 115 H (74-99) mg/dL Total Bilirubin 1.5 H (0.2-1.3) mg/dL Thrombosis Risk Factor Assmnt - Choose All That Apply Any of the Below Risk Factors Present?: No Other Risk Factors: No Other congenital or acquired thrombophilia - If yes, enter type in comment: No Thrombosis Risk Factor Assessment Level: Very Low Risk
--- NOTE | 2023-08-11 01:04 | P.CNPUL ---
History of Present Illness Consult date: 08/11/23 Requesting physician: Shade Brandt Reason for consult: asthma Chief complaint: Shortness of breath, dry nonproductive cough, wheezing History of present illness: Patient is a 37-year-old white female with past medical history significant for asthma which is managed by her primary care provider Dr. Jackson. She normally manages her asthma with a levalbuterol inhaler and as needed nebulized a lbuterol. This usually works well for her, and usually only needed when sick with a URI. Reportedly diagnosed as a child. She states that she has not been hospitalized for asthma since fourth grade. She states that she is briefly smoked for approximately 1 year in the past while in [employer] school. 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 Starting Tuesday, she began to experience chills, runny nose, and dry persistent cough. No sputum production. No fevers. No GI symptoms such as nausea or vomiting or diarrhea. States that her boss was sick 2 weeks ago with similar 6 symptoms. She originally went to her primary care provider and was prescribed a Z-Johnathan and prednisone. Unf ortunately, her symptoms have progressively worsened. She started to experience significant wheezing and shortness of breath. Endorses some chest soreness but only with coughing. Denies any radiating chest pain, heart palpitations, lightheadedness, syncope, lower extremity swelling. She did attempt to use her as needed albuterol nebs without any improvement in symptoms. She contacted her primary care provider who directed her to the emergency room yesterday morning. Chest x-ray done on arrival did not show any focal infiltrates or evidence of pneumonia. Negative for influenza, RSV, COVID. CBC unremarkable other than some mild leukocytosis with a WBC count of 12.3. CMP also unremarkable. Lactic acid level not elevated. Patient is currently resting in bed, on room air in no acute distress. Nontoxic appearance. She states that her breathing has significantly improved since her hospitalization and the addition of DuoNebs [id number], budesonide inhalation, and IV Solu-Medrol. She still has a persistent dry cough. Anticipate observation for the next 24 hours. Review of Systems REVIEW OF SYSTEMS: CONSTITUTIONAL: Denies any recent significant weight loss or weight gain. EYES: Denies change in vision. EARS, NOSE, MOUTH, THROAT: Denies headaches, denies sore throat. CARDIOVASCULAR: Denies chest pain, palpitations or syncopal episodes. RESPIRATORY: See HPI GASTROINTESTINAL: Denies change in appetite, abdominal pain, nausea and vomiting, or diarrhea GENITOURINARY: Denies hematuria, denies infections. MUSKULOSKELETAL: Denies pain, denies swelling. INTEGUMENTARY: Denies rash, denies eczema. NEUROLOGICAL: Denies recent memory loss, no recent seizure activity. PSYCHIATRIC: Denies anxiety, denies depression. HEMATOLOGIC/LYMPHATIC: Denies anemia, denies enlarged lymph node Past Medical History Past Medical History: Asthma, COPD History of Any Multi-Drug Resistant Organisms: None Reported Past Surgical History: Hysterectomy Past Anesthesia/Blood Transfusion Reactions: No Reported Reaction Past Psychological History: ADD/ADHD Smoking Status: Never smoker Past Alcohol Use History: Occasional Past Drug Use History: None Reported Medications and Allergies Home Medications Medication Instructions Recorded Confirmed Type Azithromycin [Zithromax Z Pack] See Taper PO DIRECTED 08/10/23 08/10/23 History levalbuterol HCL [Xopenex 0.63 mg INHALATION RT-QID 08/10/23 08/10/23 History Nebulized] predniSONE [Deltasone] 40 mg PO DAILY 08/10/23 08/10/23 History Allergies Allergy/AdvReac Type Severity Reaction Status Date / Time Sulfa (Sulfonamide Allergy Rash/Hives Verified 08/10/23 10:33 Antibiotics) Physical Exam Vitals: Vital Signs Temp Pulse Pulse Resp BP BP Pulse Ox 08/10/23 23:34 89 08/10/23 23:24 90 08/10/23 20:00 97.9 F 93 16 130/76 96 08/10/23 18:33 78 08/10/23 18:18 76 08/10/23 15:31 85 08/10/23 15:20 91 08/10/23 15:00 88 16 96 08/10/23 14:55 84 18 119/68 97 08/10/23 12:18 91 08/10/23 11:58 75 08/10/23 11:44 92 L 08/10/23 11:06 87 18 129/71 95 08/10/23 10:33 83 08/10/23 10:17 80 08/10/23 09:03 98.5 F 92 16 128/88 97 Intake and Output 08/10/23 08/10/23 08/11/23 14:59 22:59 06:59 Other: Weight 87.09 kg GENERAL EXAM: Alert, 37-year-old white female, comfortable in no apparent distress. HEAD: Normocephalic and atraumatic EYES: Normal reaction of pupils, equal size. NOSE: Clear with pink turbinates. THROAT: No erythema or exudates. NECK: No masses, no JVD. CHEST: No chest wall deformity. LUNGS: Equal air entry with no crackles, wheeze, rhonchi or dullness. On room air. No conversational dyspnea or accessory muscle use while at rest. Dry persistent cough noted on my evaluation. CVS: S1 and S2 normal with no audible murmur, regular rhythm. No extra heart sounds ABDOMEN: No hepatosplenomegaly, active bowel sounds, no guarding or rigidity. SPINE: No scoliosis or deformity SKIN: No rashes CENTRAL NERVOUS SYSTEM: No focal deficits, tone is normal in all 4 extremities. EXTREMITIES: There is no peripheral edema, clubbing, or cyanosis. Peripheral pulses are intact. Results - Laboratory Findings CBC and BMP: 08/10/23 09:32 08/10/23 09:32 Abnormal lab findings: Abnormal Labs 08/10/23 08/10/23 09:32 09:32 WBC 12.3 H Neutrophils # 10.9 H Lymphocytes # 0.8 L BUN 21 H Creatinine 0.49 L Glucose 115 H Total Bilirubin 1.5 H - Diagnostic Findings Chest x-ray: image reviewed Assessment and Plan Assessment: Acute exacerbation of mild intermittent bronchial asthma, likely secondary to acute bronchitis, suspect viral etiology. Failed outpatient treatment. Chest x- ray on arrival does not show any focal infiltrates or evidence of pneumonia. Negative for influenza, RSV, COVID on arrival. History of hysterectomy and menorrhagia History of kidney stones Obesity, with a BMI of 31 kg/m Remote history of tobacco use, limited to 1 year Plan: Patient's medications, labs, chest x-ray reviewed Currently on room air No evidence of pneumonia on chest x-ray. Patient reports significant improvement in symptoms since the initiation of DuoNebs [id number], budesonide inhalation, and IV Solu-Medrol 60 mg every 6 hours. Continue with current treatment and supportive care Anticipate observation for 24 hours. I have personally seen and examined the patient, performed the documentation and the assessment and plan as written. Number of minutes spent on the visit:20 Time with Patient: Greater than 30
[2023-08-11] MEDS: predniSONE 20 MG TAB PO SCH (08:19)
[2023-08-11 09:17] VITALS: BP 130/81; PULSE 78; TEMP 98.1
--- NOTE | 2023-08-11 17:07 | P.DS ---
Providers Date of admission: 08/10/23 14:41 Expected date of discharge: 08/11/23 Attending physician: Girma Sweet Consults: 08/10/23 12:57 Consult Physician Urgent Consulting Provider: Bhaskar Wesley Reason/Comments: asthma Do you want consulting provider notified?: Yes Primary care physician: Chava Jackson [facility] Course: Chief Complaint: Short of breath Very pleasant 37-year-old patient who follows with Dr. Iban Jackson. Patient was diagnosed with asthma at the age of 6. Also has had hysterectomy for heavy fibroid bleedings. Also being worked up for kidney stones by urology. 5 days ago patient started have increasing shortness of breath. Cough that was dry. Some chills but no fevers. Decreased appetite. 3 days ago patient went to her family doctor and was prescribed prednisone and Z-Johnathan. Not much help. Having significant cough. Hurting when she coughs. She also is bringing up little bit of blood now. Was wheezing quite a bit in the ER. Admitted for asthma exacerbation. Decreased appetite Patient is feeling a bit better since admission. August 11, 2023: Breathing much better. Seen by Dr. Wesley from pulmonary. Cleared for discharge. Medications discussed. Prednisone taper. Qvar 80 mcg 1 puff twice daily. Xopenex as before. 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 . Alcohol occasionally. No smoking. Physical examination: VITAL SIGNS: 98.1, 88, 17, 130/81, 95% room air GENERAL: Sitting up, breathing much improved EYES: Pupils equal. Conjunctiva david l. HEENT: External appearance of nose and ears normal, oral cavity grossly normal. NECK: JVD not raised; masses not palpable. HEART: First and second heart sounds are normal; no edema. LUNGS:[ Respiratory rate normal. Minimal wheezing at the base ABDOMEN: Soft, nontender, liver spleen not palpable, no masses palpable. PSYCH: Alert and oriented x3; mood and affect david l. MUSCULOSKELETAL:No Clubbing/cyanosis;muscles-grossly intact INVESTIGATIONS, reviewed in the clinical context: Influenza type A, type B, RSV, COVID-19: Not detected White count 12.3 hemoglobin 14 platelets 344 sodium 139 potassium 3.9. 21 creatinine 0.49 bilirubin 1.5 Chest x-ray film personally reviewed by me-lung schultz clear Assessment plan: -Acute obstructive asthma exacerbation having failed outpatient treatment. Likely precipitated by viral tracheobronchitis: Better IV Solu-Medrol 60 mg every 8. DuoNeb every 4. Nebulized Pulmicort. -Acute tracheobronchitis likely viral. Causing mild hemoptysis No need for r antibiotics -Obesity BMI 31 Weight loss measures -Kidney stones causing intermittent hematuria This is being worked up by urology outpatient Disposition: Home Past Medical History Past Medical History: Asthma, COPD History of Any Multi-Drug Resistant Organisms: None Reported Past Surgical History: Hysterectomy Past Anesthesia/Blood Transfusion Reactions: No Reported Reaction Past Psychological History: ADD/ADHD Smoking Status: Never smoker Past Alcohol Use History: Occasional Past Drug Use History: None Reported Plan - Discharge Summary Discharge Rx Participant: No New Discharge Prescriptions: New predniSONE 10 mg PO DAILY #30 tab Beclomethasone Dipropionate [Qvar 80mcg Redihaler] 1 puff PO BID #10.6 gm Continue levalbuterol HCL [Xopenex Nebulized] 0.63 mg INHALATION RT-QID Discontinued predniSONE [Deltasone] 40 mg PO DAILY Azithromycin [Zithromax Z Pack] See Taper PO DIRECTED Discharge Medication List levalbuterol HCL [Xopenex Nebulized] 0.63 mg INHALATION RT-QID 08/10/23 [History] Beclomethasone Dipropionate [Qvar 80mcg Redihaler] 1 puff PO BID #10.6 gm 08/11/23 [Rx] predniSONE 10 mg PO DAILY #30 tab 08/11/23 [Rx] Follow up Appointment(s)/Referral(s): Chava Jackson MD [Primary Care Provider] - 1-2 days Patient Instructions/Handouts: Asthma (DC) Activity/Diet/Wound Care/Special Instructions: continuue home steroid inhaler Discharge Disposition: HOME SELF-CARE
== END 2023-08-11 10:50 | disposition home or self-care (01) ==
LOC: EC 08:59 → 1SOBS 14:41
PROVIDERS: ADMIT Hospitalist; ATTEND Hospitalist
DX: J45.21 Mild intermittent asthma with (acute) exacerbation (principal); J20.9 Acute bronchitis, unspecified; R09.02 Hypoxemia; R04.2 Hemoptysis; N20.0 Calculus of kidney; N02.9 Recurrent and persistent hematuria with unspecified morphologic changes; E66.9 Obesity, unspecified; Z68.31 Body mass index [BMI] 31.0-31.9, adult; Z11.52 Encounter for screening for COVID-19; Z11.59 Encounter for screening for other viral diseases; Z79.52 Long term (current) use of systemic steroids; Z79.899 Other long term (current) drug therapy; Z88.2 Allergy status to sulfonamides; Z87.891 Personal history of nicotine dependence; Z87.42 Personal history of other diseases of the female genital tract; Z87.442 Personal history of urinary calculi; Z90.710 Acquired absence of both cervix and uterus
CPT/HCPCS: 96372 ×2; 96376 ×2; 96365; 96375; 99285; 36415; 94640 ×3; 80053; 83605; 85025; 87636; 71046; G0378 ×2; J1650 ×2; J3475; J7512; J2919 ×2

== ENCOUNTER → 2024-04-30 | Outpatient (CLI) | payer BC ==
--- NOTE | 2024-04-30 11:20 | CT ---
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 Contrast used:100 mL of Isovue 300 without and with IV Contrast, (none if empty) Oral contrast used: with Oral Contrast (none if empty) CT DLP: 2521.4 mGycm, Automated exposure control for dose reduction was used. FINDINGS: LOWER CHEST: Unremarkable ABDOMEN LIVER: Unremarkable GALLBLADDER AND BILE DUCTS: Unremarkable. PANCREAS: Unremarkable. SPLEEN: Unremarkable. ADRENAL GLANDS: Unremarkable. KIDNEYS AND URETERS: No evidence of hydronephrosis or renal calculus. The ureters are unremarkable. PELVIS BLADDER: No evidence for wall thickening or mass given limitations of exam. REPRODUCTIVE: The uterus is surgically absent. No ovarian follicles are definitively visualized. Ovar ies appear within normal limits. ABDOMEN & PELVIS STOMACH AND BOWEL: No evidence of bowel obstruction. Appendix is likely visualized posterior to the c ecum series 13 image 36/38 PERITONEUM/RETROPERITONEUM: No evidence of pneumoperitoneum or free fluid. VASCULATURE: No evidence of aortic aneurysm. MUSCULOSKELETAL: No acute osseous abnormalities LYMPH NODES: No gross evidence for lymphadenopathy. SOFT TISSUE/ABDOMINAL WALL: Fat-containing umbilical hernia. IMPRESSION: 1. No evidence for acute abdominal process. 2. The appendix is thought to be visualized and within normal limits. No evidence for obstructive ur opathy or renal calculus. [facility], , 04/30/2024 11:17 AM
== END | disposition home or self-care (01) ==
LOC: RADCTMAIN 07:38
PROVIDERS: ATTEND Pediatrics
DX: E28.2 Polycystic ovarian syndrome (principal); R10.31 Right lower quadrant pain
CPT/HCPCS: 74178; Q9967

== ENCOUNTER → 2024-07-30 | Outpatient (CLI) | payer BC ==
[2024-07-30 10:18] LABS: HCT 39.2 % (37.2-46.3); HGB 13.6 g/dL (12.0-15.0); MCH 30.3 pg (27.0-32.0); MCHC 34.7 g/dL (32.0-37.0); MCV 87.3 FL (80.0-97.0); Mean Platelet Volume 9.9 FL (9.5-12.2); NRBC Per 100 WBC 0 X 10*3/uL (0.00-0.01); Platelet Count 311 X 10*3/uL (140-440); RBC 4.49 X 10*6/uL (4.10-5.20); RDW 12.8 % (11.5-14.5); WBC 7.98 X 10*3/uL (4.50-10.00)
== END | disposition home or self-care (01) ==
LOC: LABPAT 07:32
PROVIDERS: ATTEND Anesthesiology
DX: Z01.812 Encounter for preprocedural laboratory examination (principal)
CPT/HCPCS: 85027

== ENCOUNTER 2024-08-01 05:40 | Day surgery (SDC) | payer BC ==
[2024-07-27 12:08] VITALS: BMI 32.8
[~2024-08-01 05:40] MED LIST: LIDOCAINE 1% (10MG/ML) FOR IV START INTRADERMA PRN
[2024-08-01] MEDS: LACTATED RINGERS 1,000 ML IV ONE ×2 (06:26→08:43)
[2024-08-01] MEDS: IV FLUID CONTINUATION 1,000 ML IV ONE (06:55)
[2024-08-01] MEDS: MIDAZOLAM 2 MG/2 ML VIAL IV ONE (07:02)
[2024-08-01] MEDS: fentaNYL (PF) 50 MCG/ML 2 ML AMP IVP STA (07:02)
--- NOTE | 2024-08-01 07:11 | P.ANPRN ---
Procedure Note - Anesthesia - Nerve Block Performed Bilateral Erector Spinae Single Time Out Performed: Yes (t) Date of Procedure: 08/01/24 Procedure Start Time: 07:01 Procedure Stop Time: 07:10 Location of Patient: PreOp Indication: Acute Post-Operative Pain, Requested by Surgeon Sedation Type: Sedate with meaningful contact maintained Preparation: Sterile Prep Position: Prone Needle Types: Pajunk Needle Gauge: 21 Ultrasound used to visualize needle placement: Yes Ultrasound used to observe medication spread: Yes Injectate: 0.5% Ropivacaine (see comment for volume) (CML +10 mL normal saline +4 mg dexamethasone per side) Blood Aspirated: No Pain Paresthesia on Injection Noted: No Resistance on Injection: Normal Image Stored and Saved: Yes Events: Uneventful and Well Tolerated
[2024-08-01] MEDS: SCOPOLAMINE 1 MG/72 HR PATCH TRANSDERM ONE (07:25)
[2024-08-01] MEDS: ONDANSETRON 4 MG/2 ML VIAL IVP ONE (07:25)
[2024-08-01] MEDS: HEPARIN SODIUM,PORCINE 5,000 UNIT/ML 1 ML VIAL SQ PRN (07:26)
[2024-08-01] MEDS: LACTATED RINGERS 1,000 ML IV SCH (07:26)
[2024-08-01] MEDS: DEXAMETHASONE SOD PHOSPHATE 4 MG/ML 1 ML VIAL IVP STA (07:27)
[2024-08-01] MEDS ORDERED: HYDROmorphone (PF) 1 MG/ML ONE (07:40)
[2024-08-01] MEDS ORDERED: PROPOFOL 10 MG/ML 20 ML VIAL IV ONE (07:40)
[2024-08-01] MEDS ORDERED: DEXAMETHASONE SOD PHOSPHATE 4 MG/ML 1 ML VIAL ONE (07:40)
[2024-08-01] MEDS ORDERED: MIDAZOLAM 2 MG/2 ML VIAL ONE (07:40)
[2024-08-01] MEDS ORDERED: ROPIVACAINE 5 MG/ML 30 ML VIAL ONE (07:40)
[2024-08-01] MEDS ORDERED: SUCCINYLCHOLINE CHLORIDE 200 MG/10 ML VIAL IV ONE (07:40)
[2024-08-01] MEDS ORDERED: LIDOCAINE 1% INJ 10MG/ML (20 ML MDV) ONE (07:40)
[2024-08-01] MEDS ORDERED: NEOSTIGMINE 1 MG/ML 10 ML VIAL ONE (07:40)
[2024-08-01] MEDS ORDERED: ROCURONIUM 10 MG/ML (5 ML VIAL) IV ONE (07:40)
[2024-08-01] MEDS ORDERED: diphenhydrAMINE 50 MG/ML 1 ML VIAL ONE (07:40)
[2024-08-01] MEDS ORDERED: fentaNYL (PF) 50 MCG/ML 2 ML AMP ONE (07:40)
[2024-08-01] MEDS ORDERED: SODIUM CHLORIDE 0.9% (PF) 10 ML VIAL ONE (07:40)
[2024-08-01] MEDS ORDERED: GLYCOPYRROLATE 0.2 MG/ML 2 ML VIAL ONE (07:40)
[2024-08-01] MEDS: ceFAZolin 2 GM in DEXTROSE 5% IN WATER 50 ML IVPB PRN (07:45)
[2024-08-01] MEDS: BUPIVACAINE (PF) 0.25% 30 ML VIAL SQ ONE (08:04)
--- NOTE | 2024-08-01 08:53 | P.OP ---
Date of Procedure: 08/01/24 Preoperative Diagnosis: Umbilical hernia Postoperative Diagnosis: Umbilical hernia measuring 2 x 3 cm Procedure(s) Performed: Robotic umbilical hernia repair with mesh placement Implants: Ventralight 11.4cm mesh Anesthesia: KAYLA Surgeon: Kai Schultz Pathology: none sent Condition: stable Disposition: same day Indications for Procedure: 38-year-old female with umbilical hernia that has been increasing in size and discomfort over time. Plan is for robotic umbilical hernia repair with mesh. Risks, benefits and alternatives were provided to the patient. All questions answered prior to attending the operating suite. Operative Findings: 2 x 3 cm umbilical hernia Description of Procedure: The patient was brought to the operating room and placed in supine position. General anesthesia with endotracheal intubation was performed as per anesthesia team. Chlorhexidine was used to prep the skin followed by application of sterile drapes and a timeout was performed to verify correct patient and correct procedure. Patient was confirmed to receive perioperative IV antibiotics, bilateral SCDs and 5000 units of subcutaneous heparin for VTE prophylaxis. A 5 mm skin incision was made along the left mid axillary line at Méndez's point and the abdomen was entered under direct visualization using a Visiport. Pneumoperitoneum was achieved. The umbilical hernia was clearly visualized. The hernia defect measured 2 x 3 cm. An additional 8 mm trocar was placed in the left lower abdomen and an 8 mm trocar was placed in the left mid abdomen. The initial 5 mm trocar was upsized to an 8 mm trocar. The [employer] robot was then docked. The 30 degree robotic camera was used. Robotic instruments were inserted. The hernia defect contained preperitoneal fat which was reduced using gentle traction and countertraction method. The falciform ligament was divided using monopolar scissors close to the anterior abdominal wall to create a landing zone for the mesh. A ventralight circular mesh was placed and introduced into the abdominal cavity. The mesh measured 11.4 cm in diameter. The hernia defect was then closed primarily with running sutures using 1-0 strata fix by taking 1 cm bite on the fascia on either side of the defect. A Unruly Crum device was inserted through the middle of the hernia defect and the stay suture on the mesh was grasped to elevate the mesh against the anterior abdominal wall. The mesh was then circumferentially sutured to the peritoneum of the anterior abdominal wall using 2 oh V-Loc without any folds or kinks. The robot was then undocked. Laparoscopic camera was inserted and all trocar sites were examined. No evidence of bleeding. The pneumoperitoneum was then evacuated and all skin incisions were closed using 4-0 Monocryl followed by Dermabond skin glue. Sponge and instrument and needle count were correct x 2. Abdominal binder was applied. The patient was extubated and taken to postanesthesia care unit in stable condition.
[2024-08-01 09:07] VITALS: TEMP 96.9
[2024-08-01] MEDS: HYDROmorphone 0.5 MG/0.5 ML SYRINGE IVP PRN (09:14)
[2024-08-01] MEDS: droPERidol 2.5 MG/ML VIAL IVP ONE (09:15)
[2024-08-01] MEDS: KETOROLAC 15 MG/ML 1 ML VIAL IVP STA (10:10)
[2024-08-01] MEDS: HYDROcodone/APAP 7.5-325MG 1 EACH TAB PO ONE (11:11)
[2024-08-01 11:12] VITALS: RESP 16
[2024-08-01 12:03] VITALS: BP 101/70; PULSE 66
== END 2024-08-01 12:08 | disposition home or self-care (01) ==
LOC: OR 05:40
PROVIDERS: ATTEND Surgery
DX: K42.9 Umbilical hernia without obstruction or gangrene (principal); G89.18 Other acute postprocedural pain; J44.89 Other specified chronic obstructive pulmonary disease; Z79.899 Other long term (current) drug therapy; Z88.2 Allergy status to sulfonamides; Z91.048 Other nonmedicinal substance allergy status
CPT/HCPCS: 49591; S2900; 64468